=== PATIENT | female | born 1995 | race American Indian/Alaskan Native ===

== ENCOUNTER 2018-10-18 10:09 | Emergency (ER) | payer BC, MEDICAID, OTHER ==
[2018-10-18 10:17] VITALS: BP 110/87
[2018-10-18] MEDS ORDERED: XYLOCAINE 2% INFILTRATI ONE (11:11)
[2018-10-18] MEDS ORDERED: PERCOCET 5/325 ONE (11:19)
[2018-10-18] MEDS ORDERED: ATIVAN PO ONE (11:19)
[2018-10-18] MEDS ORDERED: PERCOCET 5/325 PO ONE (11:19)
[2018-10-18] MEDS ORDERED: ATIVAN ONE (11:21)
--- NOTE | 2018-10-18 11:35 | Emergency Department Report ---
HPI - General Chief Complaint: Abdominal Pain Time Seen by Provider: 10/18/18 11:29 - HPI HPI: 23-year-old -[place] female, presents to ED with pelvic discomfort. She complains of right labial majora abscess, for the past 3 days, worse today. No drainage. Pain is worse with activity, no alleviating factors. Has not taking any medications for her symptoms. Has had previous symptoms in the past. ED Past Medical Hx - Past Medical History Previous Medical History?: No - Surgical History Past Surgical History?: No - Social History Smoking Status: Never Smoker Substance Use Type: Alcohol, Marijuana - Medications Home Medications: Home Medications Medication Instructions Recorded Confirmed Last Taken Type Acetaminophen/Codeine [Tylenol 1 tab PO Q6H #12 tab 05/02/18 Unknown Rx /Codeine # 3 tab] HYDROcodone/ACETAMINOPHEN [[place] 1 each PO BID PRN #7 tablet 10/18/18 Unknown Rx 5-325 Tablet] Ibuprofen [Motrin 800 MG tab] 800 mg PO Q8HR #30 tablet 10/18/18 Unknown Rx Sulfamethoxazole/Trimethoprim 1 each PO BID #20 tablet 10/18/18 Unknown Rx [Bactrim DS TAB] ED Review of Systems ROS: Stated complaint: POSSIBLE CYST Other details as noted in HPI Comment: All other systems reviewed and negative Constitutional: denies: no symptoms reported ENT: denies: ear pain Respiratory: denies: cough Gastrointestinal: denies: abdominal pain Genitourinary: other (LABIAL MAJORA ABSCESS) Physical Exam - Physical Exam Vital Signs: Vital Signs 10/18/18 10:14 Temperature 98.7 F Pulse Rate 105 H Respiratory 17 Rate Blood Pressure 110/87 O2 Sat by Pulse 99 Oximetry Physical Exam: Physical Exam: - General Limitations: No Limitations General appearance: alert, in no apparent distress, obese - Head Head exam: Present: atraumatic, normocephalic - Eye Eye exam: Present: normal appearance - ENT ENT exam: Present: mucous membranes moist - Neck Neck exam: Present: normal inspection - Respiratory Respiratory exam: Present: normal lung sounds bilaterally. Absent: respiratory distress - Cardiovascular Cardiovascular Exam: Present: normal rhythm, tachycardia. Absent: systolic murmur, diastolic murmur, rubs, gallop - GI/Abdominal GI/Abdominal exam: Present: soft, normal bowel sounds next Pelvic exam, 2 x 3 cm Bartholin abscess, right labia majora - Extremities Exam Extremities exam: Present: normal inspection - Back Exam Back exam: Present: normal inspection - Neurological Exam Neurological exam: Present: alert, oriented X3 - Psychiatric Psychiatric exam: normal affect and mood - Skin Skin exam: Present: warm, dry, intact, normal color. Absent: rash ED Course Vital Signs 10/18/18 10:14 Temperature 98.7 F Pulse Rate 105 H Respiratory 17 Rate Blood Pressure 110/87 O2 Sat by Pulse 99 Oximetry Critical care attestation.: If time is entered above; I have spent that time in minutes in the direct care of this critically ill patient, excluding procedure time. ED Disposition Clinical Impression: Bartholin's adenitis Disposition: TO HOME OR SELFCARE Is pt being admited?: No Does the pt Need Aspirin: No Condition: Stable Instructions: Abscess (ED), Abdominal Pain (ED) Prescriptions: Sulfamethoxazole/Trimethoprim [Bactrim DS TAB] 1 each PO BID #20 tablet Ibuprofen [Motrin 800 MG tab] 800 mg PO Q8HR #30 tablet HYDROcodone/ACETAMINOPHEN [[place] 5-325 Tablet] 1 each PO BID PRN #7 tablet PRN Reason: Pain, Moderate (4-6)
== END 2018-10-18 12:07 | disposition home or self-care (01) ==
LOC: ED 10:09
DX: N75.8 Other diseases of Bartholin's gland (principal); F12.10 Cannabis abuse, uncomplicated

== ENCOUNTER 2021-02-17 20:04 | Emergency (ER) | payer SELFPAY ==
[2021-02-17 20:36] VITALS: BP 112/69
[2021-02-17 21:22] LABS: Bacteria,Urine 1+ /HPF (Negative); Bilirubin,Urine NEG (Negative); Blood,Urine MOD (Negative); Color,Urine Yellow (Yellow); Mucus,Urine 1+ /HPF; Protein,Urine <15 mg/dL mg/dL (Negative); Urobilinogen,Urine < 2.0 mg/dL (<2.0)
[2021-02-17 21:27] LABS: HCG Qualitative,Urine Negative (Negative)
[2021-02-18] MEDS: ONDANSETRON 4 MG ODT TAB PO ONE (03:23)
[2021-02-18] MEDS: CLINDAMYCIN 300 MG CAP PO ONE (03:23)
[2021-02-18] MEDS: oxyCODONE /ACETAMINOPHEN 5-325MG TAB PO ONE (03:23)
[2021-02-18] MEDS: LIDOCAINE (1%) 10 MG/1 ML VIAL 20 ML MDV INFILTRATI ONE (03:24)
[2021-02-18] MEDS: SULFAMETHOXAZOLE/TRIMETHOPRIM 800/160MG DS TAB PO ONE (03:24)
[2021-02-18] MEDS: IBUPROFEN 600 MG TAB PO ONE (03:24)
--- NOTE | 2021-02-18 05:37 | Emergency Department Report ---
ED Female HPI - General Chief complaint: Urogenital-Female Stated complaint: PAINFUL VAGINAL CYST Source: patient Mode of arrival: Ambulatory Limitations: No Limitations - History of Present Illness Initial comments: Patient is a 26-year-old -[place] female with past medical history of recurrent Bartholin cyst gland abscess who presents to the ED with complaint of acute onset persistent severe painful swollen right labium majora and labia minora due to a painful swollen right Bartholin cyst gland for the last 5 days. Patient states that the pain and the swelling of worsened in the last 2 days such that walking makes the pain worse. Patient denies fever, chills, nausea, vomiting, dizziness, syncope, vaginal bleeding, vaginal discharge, dysuria, urinary frequency and urgency, traumatic injury, abdominal pain, diarrhea or sore throat. MD Complaint: vaginal discharge, other (Painful swollen right Bartholin gland cyst) -: Sudden, days(s) (5) Location: labia (Right labium major) Radiation: non-radiating Severity: severe Severity scale (0 -10): 8 Quality: sharp Consistency: constant Improves with: none Worsens with: movement Are you Now?: No Associated Symptoms: denies other symptoms, loss of appetite, rash (Swollen, painful right Bartholin gland cyst). denies: vaginal discharge, vaginal bleeding, abdominal pain, nausea/vomiting, fever/chills, headaches, dysuria, shortness of breath, weakness, other - Related Data Sexually active: Yes : 1 Para: 1 A: 0 Previous Rx's Medication Instructions Recorded Last Taken Type HYDROcodone/ACETAMINOPHEN [[place] 1 each PO BID PRN #7 tablet 10/18/18 Unknown Rx 5-325 Tablet] Acetaminophen/Codeine [Tylenol 1 tab PO Q6H #12 tab 02/18/21 Unknown Rx /Codeine # 3 tab] Ibuprofen [Motrin 800 MG tab] 800 mg PO Q8HR #30 tablet 02/18/21 Unknown Rx Sulfamethoxazole/Trimethoprim 1 each PO BID #20 tablet 02/18/21 Unknown Rx [Bactrim DS TAB] Allergies Allergy/AdvReac Type Severity Reaction Status Date / Time No Known Allergies Allergy Verified 05/02/18 16:08 ED Review of Systems ROS: Stated complaint: PAINFUL VAGINAL CYST Other details as noted in HPI Constitutional: denies: chills, fever Eyes: denies: eye pain, eye discharge, vision change ENT: denies: ear pain, throat pain Respiratory: denies: cough, shortness of breath, wheezing Cardiovascular: denies: chest pain, palpitations Endocrine: no symptoms reported Gastrointestinal: denies: abdominal pain, nausea, diarrhea Genitourinary: other (Painful swollen right Bartholin gland cyst). denies: urgency, dysuria, frequency, hematuria, discharge Musculoskeletal: denies: back pain, joint swelling, arthralgia Skin: rash (Painful swollen right Bartholin gland cyst). denies: lesions, change in color, change in hair/nails Neurological: denies: headache, weakness, paresthesias Psychiatric: denies: anxiety, depression Hematological/Lymphatic: denies: easy bleeding, easy bruising ED Past Medical Hx - Social History Smoking Status: Never Smoker Substance Use Type: None - Medications Home Medications: Home Medications Medication Instructions Recorded Confirmed Last Taken Type HYDROcodone/ACETAMINOPHEN [[place] 1 each PO BID PRN #7 tablet 10/18/18 Unknown Rx 5-325 Tablet] Acetaminophen/Codeine [Tylenol 1 tab PO Q6H #12 tab 02/18/21 Unknown Rx /Codeine # 3 tab] Ibuprofen [Motrin 800 MG tab] 800 mg PO Q8HR #30 tablet 02/18/21 Unknown Rx Sulfamethoxazole/Trimethoprim 1 each PO BID #20 tablet 02/18/21 Unknown Rx [Bactrim DS TAB] ED Physical Exam - General Limitations: No Limitations General appearance: alert, in no apparent distress - Head Head exam: Present: atraumatic, normocephalic, normal inspection - Eye Eye exam: Present: normal appearance, PERRL, EOMI Pupils: Present: normal accommodation - ENT ENT exam: Present: normal exam, normal orophraynx, mucous membranes moist, TM's normal bilaterally, normal external ear exam - Neck Neck exam: Present: normal inspection, full ROM - Respiratory Respiratory exam: Present: normal lung sounds bilaterally. Absent: respiratory distress, wheezes, rales, stridor, chest wall tenderness, accessory muscle use, decreased breath sounds, other - Cardiovascular Cardiovascular Exam: Present: regular rate, normal rhythm, normal heart sounds. Absent: systolic murmur, diastolic murmur, rubs, gallop - GI/Abdominal GI/Abdominal exam: Present: soft, normal bowel sounds. 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 Absent: pedal edema, joint swelling, calf tenderness - Back Exam Back exam: Present: normal inspection, full ROM. Absent: tenderness, CVA tenderness (R), CVA tenderness (L), muscle spasm, paraspinal tenderness, vertebral tenderness - Neurological Exam Neurological exam: Present: alert, oriented X3, CN II-XII intact, normal gait, reflexes normal - Psychiatric Psychiatric exam: Present: normal affect, normal mood - Skin Skin exam: Present: warm, dry, intact, normal color, rash (Swollen severely tender right Bartholin gland cyst with fluctuance) ED Course Vital Signs 02/17/21 20:32 Temperature 98.7 F Pulse Rate 97 H Respiratory 18 Rate Blood Pressure 112/69 O2 Sat by Pulse 99 Oximetry - I & D Right Vagina Type of Procedure: Simple (Right Bartholin gland cyst) Site: Right Bartholin gland cyst Blade Size: 11 I & D Procedure: betadine prep, sterile drapes applied, sterile dressing applied Progress: The area was cleaned extensively with normal saline and Betadine solution. Local anesthetic lidocaine 1% solution was used to infiltrate to the area for anesthesia. When anesthesia was fully achieved, the area was incised with scalpel blade #11 and copious thick purulent discharge drained from the wound. The wound was then extensively debrided with normal saline and the for loculations broken with hemostat. The wound was then packed with iodoform quarter inch gauze for a total of 5 cm in length. The wound was then dressed appropriately and the patient tolerated procedure well. Patient was discharged home on pain medications and antibiotics and advised to follow-up with her primary care physician in 5 to 7 days for reevaluation or return to the ED immediately if symptoms get worse. ED Medical Decision Making - Medical Decision Making This is a 26-year-old -[place] female with past medical history of recurrent Bartholin cyst gland abscess who presents to the ED with complaint of acute onset persistent severe painful swollen right labium majora and labia minora due to a painful swollen right Bartholin cyst gland for the last 5 days. Patient states that the pain and the swelling of worsened in the last 2 days such that walking makes the pain worse. In the ED, patient is alert and oriented x3 and is not in any distress but appears to be in significant pain. Patient was treated for pain in the ED and also given initial oral antibiotics. The right Bartholin gland cyst was cleaned extensively with normal saline and Betadine solution and lidocaine 1% solution used as a local anesthetic. When anesthesia was fully achieved in the right Bartholin gland, the area was incised with scalpel blade size #11 and copious thick purulent discharge drained from the wound. The wound was then extensively debrided with normal saline and packed with iodoform quarter inch gauze for a total of 5 cm in length. The wound was then dressed appropriately and the patient tolerated the procedure well. Patient was therefore discharged home on pain medication and oral antibiotics and advised to follow-up with her primary care physician in 5 to 7 days for reevaluation or return to the ED immediately if symptoms get worse. - Differential Diagnosis Cellulitis; Bartholin gland cyst; cutaneous abscess; folliculitis Critical care attestation.: If time is entered above; I have spent that time in minutes in the direct care of this critically ill patient, excluding procedure time. ED Disposition Clinical Impression: Abscess of right Bartholin's gland, Acute folliculitis Disposition: 01 HOME / SELF CARE / HOMELESS Is pt being admited?: No Does the pt Need Aspirin: No Condition: Stable Instructions: Skin Abscess, [id number], Bartholin's Cyst, [id number] Additional Instructions: Take medication with food, drink plenty of fluids and follow-up with your primary care physician in 5 to 7 days for reevaluation. Return to the ED immediately if symptoms get worse. Prescriptions: Sulfamethoxazole/Trimethoprim [Bactrim DS TAB] 1 each PO BID #20 tablet Ibuprofen [Motrin 800 MG tab] 800 mg PO Q8HR #30 tablet Acetaminophen/Codeine [Tylenol /Codeine # 3 tab] 1 tab PO Q6H #12 tab Referrals: TYREE GANDARA MD [Primary Care Provider] - 3-5 Days Time of Disposition: 05:41 Print Language: SERBIAN
== END 2021-02-18 05:45 | disposition home or self-care (01) ==
LOC: ED 20:04
DX: N75.1 Abscess of Bartholin's gland (principal); L73.9 Follicular disorder, unspecified; Z79.899 Other long term (current) drug therapy
CPT/HCPCS: 81001; 81025; 87086; Q0162